=== PATIENT | female | born 1975 | race Caucasian/White ===

== ENCOUNTER 2016-08-18 11:00 | Day surgery (SDC) | payer OTHER ==
[~2016-08-18] VITALS: Ht 172.7 cm; Wt 121.0 kg
[~2016-08-18 11:00] MED LIST: CHOL5000 PO; DICY10CA56 PO; NICO1PAT40 TD; NICO2LOZ BUCCAL; OMEG-38 PO; OMEP40CA36 PO; UBID400C6 PO; VITA400C64 PO
[2016-08-18] MEDS ORDERED: Propofol 10,000 mCg/mL 20 mL Inj ONE (11:01)
[2016-08-18] MEDS ORDERED: Lidocaine PF 1% 30 mL Inj ONE (11:01)
[2016-08-18] MEDS ORDERED: Glycopyrrolate 0.2 MG/ML 1mL Inj ONE (11:01)
[2016-08-18 11:34] VITALS: BP 125/66; PULSE 67; RESP 16; O2SAT 97
[2016-08-18] MEDS ORDERED: CANNIBIS (11:48)
--- NOTE | 2016-08-18 12:31 | PCM.HPANE ---
Patient Data Date of Service: August 18, 2016 Surgeon Admitting Provider: Attending Provider:Alek Cordova MD Primary Care Physician:Edgar Other Provider: Reason for Visit Diarrhea, Epigastic Pain Ht/WT & BMI Height (Feet): 5 Height (Inches): 8 Weight (Kilograms): 121 Body Mass Index 40.00 Allergies Coded Allergies: promethazine (Verified Allergy, Severe, SEIZURE, 08/18/16) Past Anesthesia History Anesthesia History: Denies:: Abnormal Airway, Anesthesia Reactions, Difficult Intubation, Fam Anesthesia Reaction, Fam Malignant Hypertherm, Malignant Hyperthermia Diabetes History Hx Diabetes?: No MRSA MRSA: No Medications Hypertension Medication: No Home Meds Incl Beta Cathy: No Reported Medications [Cannibis] No Conflict Check 08/18/16 Vitamin E Mixed (Vitamin E)400 Unit [id number] Unit PO DAILY 30 Days 08/14/16 Cholecalciferol (Vitamin D3) (Vitamin D3)5,000 Unit Capsule5,000 Unit PO 08/14/16 Omeprazole 40 Mg Capsule.dr40 Mg PO DAILY Ref 0 08/14/16 [place]-3/Dha/Epa/Fish Oil (Fish Oil 1,000 mg Softgel)1 Each Capsule1 Each PO DAILY 08/14/16 Ubidecarenone (Co Q-10)400 Mg Kcxtjkv402 Mg PO DAILY 08/14/16 Discontinued Reported Medications Nicotine Polacrilex (Nicorette)2 Mg Lozenge2 Mg BUCCAL 08/14/16 Nicotine (Nicoderm Cq 14 mg/24 hr)1 Each Patch.td241 Each TD DAILY 14 Days Ref 0 08/14/16 Dicyclomine (Bentyl)10 Mg Roakvul03 Mg PO QID 08/14/16 History History of ENT Problems?: No HEENT History: Denies:: Abnormal Airway Difficult Intubation Dysphagia Hearing Problem Denture Type: None Teeth Condition: Within Normal Limits Hx of Heart Problems?: No Cardiovascular History: Denies:: AICD Atrial Fibrillation Chest Pain Hypertension Pacemaker Valvular Heart Disease Hx of Respiratory Problem?: No Respiratory History: Denies:: Asthma COPD Cough Hemoptysis Pneumonia Tuberculosis Hx Neurologic Problems?: Yes Neurological History: Positive for:: TIA Hx of GI Problems?: Yes Gastrointestinal History: Positive for:: Heartburn Hx of Problems?: No Female Hx: Denies:: Currently Hx Musculoskeletal Problems?: Yes (cervical stenosis) Musculoskeletal History: Denies:: Fibromyalgia Joint Replacement Psycho Social History: Positive for:: Anxiety Hx Depression Hx Surgeries?: No Hx Any Other Health Problems?: Yes History Blood Transfusions: Denies:: Blood Transfusions Hx Diabetes: No Hx Alcohol Use: NoHx Substance Use: Yes (marijuana) Smoking Status: Current Every Day Smoker Heavy Tobacco Smoker Have You Smoked inLast 12 mo: Yes Stop/Bang Treated for Sleep Apnea?: Yes Do You Have a CPAP Machine?: Yes DIANA Category 4 OutPt Procedure: Yes Risk Assessment Category Category 1A: Patient has history of documented sleep apnea, and HAS NOT received any narcotic, sedative or anesthesia administration during this stay. Category 1B: Patient has history of documented sleep apnea, and HAS received any narcotic , sedative or anesthesia administration during this stay Category 2: Patient has SUSPECTED Obstructive Sleep Apnea, and HAS received any narcotic , sedative or anesthesia administration during this stay. Category 3: Patient has SUSPECTED Obstructive Sleep Apnea and HAS NOT received narcotic, sedative or anesthesia administration during this stay. Category 4: Outpatient in Procedural Areas with known sleep apnea or who screen positive for High Risk via the STOP/BANG questionnaire. Exam Exam Vital Signs Vital Signs Date Time Temp Pulse Resp B/P Pulse Ox O2 Delivery O2 Flow Rate FiO2 08/18/16 11:34 36.7 67 16 125/66 97 Room Air General Appearance: Alert, Oriented X3, Cooperative, No Acute Distress HEENT/AIRWAY: MP 2 Lungs: Clear to Auscultation, Normal Air Movement Heart: Exam Unremarkable, Regular Rate/Rhythm, No Murmurs/Rubs/Gallops Plan Impression Patient chart reviewed, patient interviewed and anesthestic plan with risks, benefits, and alternatives discussed, and informed consent obtained. NPO per Anesth. Guidelines: Yes ASA Physical Status: ASA2 Mod Systemic Disease Anesthetic Plan: TIVA Bene/Risks/Altern/Consents: Yes HP Complete Prior to Induction: Yes Perez Savage MD August 18, 2016 12:31
[2016-08-18] MEDS: Lactated Ringer's 1,000 ML IV ONE ×2 (12:41→12:54)
[2016-08-18 13:00] VITALS: BP 121/69; PULSE 70; RESP 14; O2SAT 99
[2016-08-18 13:10] VITALS: BP 140/89; PULSE 65; RESP 14; O2SAT 97
--- NOTE | 2016-08-18 13:49 | ENDO ---
[address] [address] ENDOSCOPY PROCEDURE PATIENT: CECELIA MALDONADO : 1975 MR#: [id number] ADMIT: 08/18/2016 JOB ID: [id number] DATE: 08/18/2016 PROCEDURE: 1. Esophagogastroduodenoscopy with biopsy. 2. Colonoscopy with biopsy. PREOPERATIVE DIAGNOSIS(ES): Diarrhea, epigastric pain and gastroesophageal reflux disease. POSTOPERATIVE DIAGNOSIS(ES): 1. There were two ulcers seen in the gastric body, clean based, nonbleeding, largest size 5 mm, status post biopsy. 2. Normal colonoscopy status post biopsy. ANESTHESIA: Monitored anesthesia care. COMPLICATION: None. BLOOD LOSS: Minimal. DESCRIPTION OF PROCEDURE: After the risks and benefits were explained to the patient, informed consent was obtained. After anesthesia administered, an upper endoscope was inserted into the mouth intubating the esophagus, stomach, second portion of duodenum, and mucosa carefully examined. After procedure was done, the scope was withdrawn and the procedure was terminated. FINDINGS: Upon inspection of the esophagus, the esophagus was normal without masses, ulcers, lesions. Z-line located at 40 cm from the incisors. Upon entry of the stomach, there were two gastric ulcers, clean based, nonbleeding, seen in the body of the stomach measuring 5 mm in diameter. There were no other masses that were seen. Retroflexion was normal. Duodenal bulb, first and second portion were normal. Biopsies taken at the duodenum, antrum, body and distal esophagus. Upon inspection of the anus, no masses, hemorrhoids, ulcers, or fissures that were seen. Throughout the entire examination, there were no polyps, masses or lesions. Biopsies taken in the terminal ileum, random colon at that point in time. Retroflexion was normal. IMPRESSIONS: 1. Normal colonoscopy status post biopsy. 2. Two gastric ulcers in the body and stomach, 5 mm largest size, clean based, nonbleeding. No biopsy. RECOMMENDATION: 1. Await pathology results. 2. Omeprazole 40 mg by mouth twice a day. 3. Carafate 1 g by mouth four times a day. 4. Followup with Kym Lopez in the [facility] as an outpatient.
--- NOTE | 2016-08-18 16:15 | PCM.ANEP1 ---
Post Anesthesia Phase 1 PACU Phase 1 Assessment Date of Service: August 18, 2016 Vital Signs Vital Signs Date Time Temp Pulse Resp B/P Pulse Ox O2 Delivery O2 Flow Rate FiO2 08/18/16 13:10 65 14 140/89 97 Room Air 08/18/16 13:00 36.1 70 14 121/69 99 Room Air 08/18/16 11:34 36.7 67 16 125/66 97 Room Air Anesthetic Administered: TIVA Level of Alertness: Awake, talking [employer] with Equal Strength: Yes Pain: No Nausea or Vomiting: No Cardiovascular Function and Hy: Yes Oxygen Delivery: Room Air Lungs: Clear to Auscultation, Normal Air Movement Dermatome Level: Full Sensation Complications: No Follow up Care: No Perez Savage MD August 18, 2016 16:15
--- NOTE | 2016-08-19 16:55 | PATH ---
SURGICAL PATHOLOGY Attending Physician:Alek Cordova MD CASE STATUS: Signed Out PATIENT NAME: CECELIA MALDONADO PID: [id number] : 1975 DATE COLLECTED:08/18/2016 20:28 SPECIMEN: 1: Duodenum, Biopsy 2: Stomach, Antrum, Biopsy 3: Gastric, Biopsy 4: Esophagus, Biopsy 5: Ileum, Biopsy 6: Colon, Biopsy CLINICAL HISTORY: 1). DUODENAL BIOPSIES 2). ANTRUM BIOPSIES 3). GASTRIC ULCER BIOPSIES 4). DISTAL ESOPHAGUS BIOPSIES 5). TERMINAL ILEUM BIOPSIES 6). RANDOM COLON BIOPSIES FINAL DIAGNOSIS: 1. Duodenal Biopsies: Duodenal mucosa with no diagnostic abnormality. Negative for active inflammation, features of sprue, dysplasia, or malignancy. 2. Antrum Biopsies: Portions of gastric antral-type mucosa with no diagnostic abnormality. Negative for Helicobacter organisms by H&E stain. Negative for intestinal metaplasia, dysplasia, and malignancy. 3. Gastric Ulcer, Biopsies: Portions of gastric body-type mucosa with mild chronic active gastritis and focal features of reactive gastropathy. No definite ulcer identified. Negative for Helicobacter organisms by H&E stains. Immunohistochemistry studies pending; results will be reported as an addendum. Negative for intestinal metaplasia, dysplasia, and malignancy. 4. Distal Esophagus, Biopsies: Portions of squamocolumnar junctional mucosa with no diagnostic abnormality. Negative for intestinal metaplasia. Negative for dysplasia and malignancy. 5. Terminal Ileum, Biopsies: Portions of small intestinal mucosa, consistent with terminal ileum, with no diagnostic abnormality. Negative for dysplasia and malignancy. 6. Random Colon Biopsies: Colonic mucosa with no significant diagnostic abnormality. Negative for active inflammation, granulomas, dysplasia, and malignancy. Negative for microscopic colitis. ICD10: K29.7 GROSS DESCRIPTION: The specimen is received in six formalin filled containers labeled with the patient's name. 1). The specimen is sublabeled "duodenal" and consists of a 0.3 x 0.2 x 0.2 CM portion of tissue which is entirely submitted in cassette 1A. 2). The specimen is sublabeled "antrum" and consists of 2 portions of tissue which aggregate to 0.3 x 0.3 x 0.2 CM. The specimen is entirely submitted in cassette 2A. 3). The specimen is sublabeled "gastric ulcer" and consists of a 0.3 x 0.3 x 0.2 CM portion of tissue which is entirely submitted in cassette 3A. 4). The specimen is sublabeled "distal esophagus" and consists of 2 portions of tissue which aggregate to 0.3 x 0.3 x 0.2 CM. The specimen is entirely submitted in cassette 4A. 5). The specimen is sublabeled "TI" and consists of 2 portions of tissue which aggregate to 0.3 x 0.3 x 0.2 CM. The specimen is entirely submitted in cassette 5A. 6). The specimen is sublabeled "random colon" and consists of 5 portions of tissue which aggregate to 0.7 x 0.4 x 0.3 CM. The specimen is entirely submitted in cassettes 6A. 08/18/2016 [facility] ICD-9 CODES: CPT CODES: 1: 28237 2: 67535 3: 67431, 47688, 32403, 20155 4: 78554 5: 80289 6: 11763 PROCEDURE/ADDENDA: Immunohistochemistry SPI Interpretation {Not Entered} Results-Comments 2.GASTRIC ANTRUM BIOPSY: 3.GASTRIC ULCER, BIOPSY: This addendum is to report the results of immunohistochemical stains for Helicobacter pylori. The gastric biopsy (part 2) and the gastric ulcer (part 3) are stained by immunohistochemical technique using monoclonal antibody to Helicobacter pylori (SP48). Positive and negative controls stain appropriately. Result: The patient tissue shows no staining. Interpretation: The gastric mucosa on both parts 2 and 3 is negative for Helicobacter organisms by immunohistochemical stains. This test was developed and its performance characteristics determined by [facility]. It has not been cleared or approved by the [place]. Food and Drug Administration. The FDA has determined that such clearance or approval is not necessary. This test is used for clinical purposes. It should not be regarded as investigational or for research. Electronically Signed Out Tiff Garcia MD Electronically Signed Out Vicki Verde MD [facility] Pathology [facility] [address], [place] [address] Technical component performed at [facility], [address], [place], [address]
== END 2016-08-18 23:59 | disposition home or self-care (01) ==
LOC: END 11:00
PROVIDERS: ATTEND Internal Medicine Gastroenterology
DX: K29.50 Unspecified chronic gastritis without bleeding (principal); K21.9 Gastro-esophageal reflux disease without esophagitis; R10.13 Epigastric pain; R19.4 Change in bowel habit; F17.210 Nicotine dependence, cigarettes, uncomplicated; M48.02 Spinal stenosis, cervical region; G47.33 Obstructive sleep apnea (adult) (pediatric); E66.01 Morbid (severe) obesity due to excess calories; Z68.41 Body mass index [BMI] 40.0-44.9, adult; K31.7 Polyp of stomach and duodenum
CPT/HCPCS: 43239; 45380; J7120